=== PATIENT | female | born 1940 | race African-American/Black ===

== ENCOUNTER 2016-10-21 03:34 | Emergency (ER) | payer OTHER ==
[~2016-10-21] VITALS: Ht 162.6 cm; Wt 78.3 kg
[~2016-10-21 03:34] MED LIST: ANTIVERT25 MG PO; ATORVASTATIN CA40 MG PO; BENADRYL25 MG PO; BENAZEPRIL HCL20 MG PO; GLIMEPIRIDE1 MG PO; HYDROCHLOROTH12.5 M3 PO; LIPITOR40 MG PO; LOTREL 10/41 CAPSULE PO; LUMIGAN 0.50 DROP/22 LEFT EYE; METFORMIN HCL500 MG PO; OMEPRAZOLE20 MG PO; OYSTER SHELL C500 M1 PO; PERCOCET 5/31 TABLET PO
[2016-10-21 04:09] LABS: MCH 22.2 PG (29.0-34.0); MCHC 31.8 G/DL (30.0-36.0); MCV 69.6 FL (83-99); PLATELET COUNT 280 K/uL (156-360); RBC DIS.WIDTH-CV 15.9 % (11.8-14.6); RED BLOOD COUNT 5.46 M/uL (3.80-5.20); WHITE BLOOD COUNT 8.6 K/uL (4.1-10.2)
[2016-10-21 04:21] LABS: CHLORIDE 105 mEq/L (99-109); POTASSIUM 3.3 mEq/L (3.7-5.4); SODIUM 139 mEq/L (136-147)
[2016-10-21 04:23] LABS: GLUCOSE 157 mg/dL (70-99)
[2016-10-21 04:24] LABS: ANION GAP 12 MEQ/L (2-14)
[2016-10-21 04:25] LABS: TOTAL BILIRUBIN 0.7 mg/dL (0.0-1.0)
[2016-10-21 04:27] LABS: ALKALINE PHOSPHATASE 91 IU/L (3-129); GFR ESTIMATE (CALCULATED) 51 mL/min/
[2016-10-21 04:28] LABS: UREA NITROGEN (BUN) 19 mg/dL (9-23)
[2016-10-21] MEDS ORDERED: ZOFRAN4 MG PO (05:49)
[2016-10-21] MEDS ORDERED: IMODIUM A-D2 M2 PO (05:49)
[2016-10-21 05:58] VITALS: BP 115/73
[2016-10-21 06:36] LABS: ADD MIUA? YES; BILIRUBIN NEGATIVE; BLOOD NEGATIVE; COLOR STRAW ((YELLOW)); GLUCOSE (STRIP) NEGATIVE; KETONES NEGATIVE; LEUKOCYTES SMALL; NITRITE NEGATIVE; PROTEIN (STRIP) NEGATIVE; SPECIFIC GRAVITY 1.018 (1.000-1.030); UROBILINOGEN 0.2 MG/DL (0.2-1.0)
[2016-10-21 06:40] LABS: BACTERIA NONE SEEN /HPF; EPITHELIAL CELLS RARE /HPF; MUCUS TRACE /LPF; RED BLOOD CELLS 0-5 /HPF (0-5); UCUL ADDED? NO; WHITE BLOOD CELLS 0-5 /HPF (0-5)
== END 2016-10-21 06:06 | disposition home or self-care (01) ==
LOC: EME 03:34
DX: A08.4 Viral intestinal infection, unspecified (principal); E11.9 Type 2 diabetes mellitus without complications; E78.5 Hyperlipidemia, unspecified; I10 Essential (primary) hypertension; M81.0 Age-related osteoporosis without current pathological fracture; Z85.43 Personal history of malignant neoplasm of ovary
CPT/HCPCS: 74177; 80053; 81003; 85027; 93005; 99281; 99285; J2405; J7030

== ENCOUNTER 2017-10-02 15:59 | Emergency (ER) | payer OTHER ==
[~2017-10-02] VITALS: Ht 157.5 cm; Wt 77.7 kg
[~2017-10-02 15:59] MED LIST changes: +IMODIUM A-D2 M2 PO; +ZOFRAN4 MG PO
[2017-10-02 17:14] LABS: HEMATOCRIT 36.2 % (36.0-46.0); HEMOGLOBIN 11.1 G/DL (11.9-15.5); MCH 22.6 PG (29.0-34.0); MCHC 30.7 G/DL (30.0-36.0); MCV 73.7 FL (83-99); PLATELET COUNT 210 K/uL (156-360); RBC DIS.WIDTH-CV 15.6 % (11.8-14.6); RED BLOOD COUNT 4.91 M/uL (3.80-5.20); WHITE BLOOD COUNT 6.7 K/uL (4.1-10.2)
[2017-10-02 17:16] LABS: CHLORIDE 110 mEq/L (99-109); POTASSIUM 3.9 mEq/L (3.7-5.4); SODIUM 142 mEq/L (136-147)
[2017-10-02 17:18] LABS: GLUCOSE 123 mg/dL (70-99)
[2017-10-02 17:22] LABS: GFR ESTIMATE (CALCULATED) > 59 mL/min/
[2017-10-02 17:23] LABS: UREA NITROGEN (BUN) 18 mg/dL (9-23)
[2017-10-02 18:29] LABS: TROP-I INTERPRETATION NEGATIVE; TROPONIN-I < 0.01 ng/mL (0.0-0.30)
[2017-10-02] MEDS ORDERED: MECLIZINE HCL25 MG PO (19:49)
[2017-10-02 20:34] VITALS: BP 181/82
== END 2017-10-02 20:35 | disposition home or self-care (01) ==
LOC: EME 15:59
PROVIDERS: Emergency Medicine
DX: R42 Dizziness and giddiness (principal); R51 Headache; Z91.81 History of falling; E11.9 Type 2 diabetes mellitus without complications; Z85.43 Personal history of malignant neoplasm of ovary; Z87.891 Personal history of nicotine dependence
CPT/HCPCS: 70450; 71046; 80048; 82948; 84484; 85027; 93005; 99281; 99284